=== PATIENT | female | born 1965 | race Caucasian/White ===

== ENCOUNTER → 2017-05-12 | Outpatient (CLI) | payer MEDICAID ==
[~2017-05-12] MED LIST: ATENOLOL25 MG PO; DICLOFENAC SOD PO; FLEXERIL10 MG PO; GLIPIZIDE ER 5MG5 MG PO; LEXAPRO 10 MG T10 MG PO; LISINOPRIL2.5 M1 PO; METFORMIN 500M500 MG PO; NORCO 325 MG-51 TAB PO; PERCOCET1 TAB PO
--- NOTE | 2017-05-12 11:07 | RADIOLOGY REPORT PS360 ---
[id number] VIEW COMP.-RT COMPARISON: CT exam right shoulder 05/07/2017 HISTORY: Follow-up fracture TECHNIQUE: AP and transthoracic lateral view FINDINGS: The essentially nondisplaced fracture of the humeral head and greater tuberosity is stable and unchanged in appearance from the CT exam. The small cortical right is seen anteriorly in the diametaphyseal zone of the humerus on the transthoracic view. There is a very faint somewhat oblique radiolucent line of the diametaphyseal zone seen on the AP view. IMPRESSION: Stable essentially nondisplaced fracture. The greater tuberosity and diametaphyseal zone.
== END ==
LOC: RAD 10:06
DX: S42.201A Unspecified fracture of upper end of right humerus, initial encounter for closed fracture (principal)

== ENCOUNTER → 2017-06-19 | Outpatient (CLI) | payer MEDICAID ==
--- NOTE | 2017-06-19 09:46 | RADIOLOGY REPORT PS360 ---
[id number]-UNI-3 VIEWS HISTORY: Follow-up fracture HEALING OF RT HUMERUS FX ORDERING PHYSICIAN: Rik Escobar MD PATIENT AGE: 52 years COMPARISON: 05/27/2017 FINDINGS: Healing right humeral neck fracture is present. Fracture line is less apparent and there is some developing callus formation. There is good alignment and no evidence of displacement. IMPRESSION: Healing right humeral neck fracture
== END ==
LOC: RAD 09:16
DX: S42.294D Other nondisplaced fracture of upper end of right humerus, subsequent encounter for fracture with routine healing (principal)

== ENCOUNTER → 2017-07-21 | Outpatient (CLI) | payer MEDICAID ==
--- NOTE | 2017-07-21 10:39 | RADIOLOGY REPORT PS360 ---
BONE DENSITOMETRY(HIP:LT SPINE HISTORY: CLOSED NONDISPLACED FRACTURE, PROX END RT HUMERUS, SEQUELA ORDERING PHYSICIAN: CHUY MCCLAIN PATIENT AGE: 52 years COMPARISON: None FINDINGS: The BMD measured at the left femoral neck is 0.857 g/cm squared with a T score of -1.3. This is considered Osteopenic according to the World Health Organization criteria. Fracture risk is Moderate. Treatment is advised. IMPRESSION: Osteopenia. Recommend follow-up exam July 2019
--- NOTE | 2017-07-22 08:57 | RADIOLOGY REPORT PS360 ---
CT CHEST W/ CONTRAST INDICATION: Follow-up lung nodules LUNG NODULES ORDERING PHYSICIAN: CHUY MCCLAIN PATIENT AGE: 52 years COMPARISON: 04/23/2016 TECHNIQUE: Axial images are obtained with 75 mL Isovue-370 IV . Sagittal and coronal reformatted images are reviewed as well. FINDINGS: There is heterogeneous density involving the lower pole of the thyroid gland on the right at approximately 1. 4 cm suggestive of a thyroid nodule and may be confirmed with ultrasound. The left lobe of thyroid gland is slightly enlarged inferiorly. No mediastinal or hilar mass. Normal heart size. No evidence of aortic aneurysm or central pulmonary embolus. There are centrilobular emphysematous changes with scattered cystic areas within the lungs. 4 mm nodule right upper lobe unchanged. Nodular thickening in the perivascular region in the right middle lobe at 4 mm unchanged. 4 mm nodule right middle lobe laterally unchanged scattered areas of pulmonary fibrosis. Faint 3 mm nodule right upper lobe laterally unchanged. 4 mm nodule left lower lobe unchanged. There is an 11 mm rounded nodule in the left lung base posteriorly unchanged. This does appear to contain some central calcification. A 4 mm nodule is present in the left lung base posteriorly unchanged. 5 mm nodule left lower lobe posteriorly and medially unchanged. No new nodules evident. No effusions or infiltrates. Upper abdominal images are unremarkable. There is a left adrenal nodule which is incompletely imaged measuring at least 15 mm similar to the previous exam. IMPRESSION: 1. Overall stable CT appearance of the chest. There are multiple pulmonary nodules as described above which are stable. The largest nodule is in the left lung base and does appear to contain some central calcification consistent with a granuloma. 2. Centrilobular emphysematous changes 3. Other nonacute findings as described above including a 14 mm right thyroid nodule which may be better evaluated with ultrasound.
== END ==
LOC: RAD 07-14 09:45
DX: R91.8 Other nonspecific abnormal finding of lung field (principal); Z78.0 Asymptomatic menopausal state; S42.294S Other nondisplaced fracture of upper end of right humerus, sequela; Z13.820 Encounter for screening for osteoporosis
CPT/HCPCS: Q9967

== ENCOUNTER 2017-09-09 17:40 | Emergency (ER) | payer MEDICAID ==
[~2017-09-09] VITALS: Ht 162.6 cm; Wt 77.1 kg
--- NOTE | 2017-09-09 18:06 | Urgent Treatment Center Report ---
History of Present Issue Date/Time Seen by Provider 09/09/17 1773 Visit Reason Pt arrived:Walked Presenting Problem:FELL, PAIN TO R SHOULDER, ELBOW AND WRIST Location if Accident: Onset of symptoms date/time:/ or onset unknown for:MEDICAL HX UNKNOWN Have you (or family members/close friends) recently traveled outside the [place]? N If Yes, where/when: Have you had exposure to infectious disease within the past month? TB? Other? Specify: Patient state that she fell going [place] [employer] and now having pain in right arm from her wrist to her shoulder State that she fell in May and had a fracture in her right shoulder State that she was stepping up on concrete wall last night and caught the tip of her shoe on the wall and lost her balance and fell State that she stuck her arms out to catch herself and feels like she "jammed" everything up ALLERGIES Coded Allergies: aspirin (EXTREME BRUISING 07/25/16) Home Medications Active Scripts OXYCODONE HCL/ACETAMINOPHEN (Percocet 5-325 MG Tablet) 1 TAB PO Q6HP PRN pain #10 TAB Prov: 05/07/17 Reported Medications HYDROCODONE/ACETAMINOPHEN ([place] 5-325 Tablet) 1-2 TAB PO Q4HP PRN PAIN Atenolol (Atenolol) 12.5 MG PO DAILY #30 METFORMIN HCL (Metformin 500MG) 500 MG PO BID #60 GLIPIZIDE (Glipizide ER) 5 MG PO DAILY #30 Lisinopril 2.5 MG PO DAILY #30 Escitalopram Oxalate (Lexapro 10MG) 10 MG PO NIGHTLY History Medical History General CAD? No Angina: No [place]: No Hypertension? Yes Hyperlipidemia? No CHF? No DVT? No PE? No COPD? No Asthma? No Anemia? No GERD? No Gastric ulcers? No GI Bleed? No Hernia? No Thyroid Problems? No Hypothyroidism? No CVA? No Seizures? No Diabetes? Yes Insulin Dependent: No Insulin Pump: No Home FSBS? Yes Renal Insuffiency? No UTI? Yes Stones? No BPH? No GB Disease: No Nephritic Syndrome? No Asplenia? No Hepatitis? No Sickle Cell Disease? No Arthritis? No Migraines? No Cataracts? No Glaucoma? No MRSA? No HIV? No TB? No Anxiety? No Depression? No Cancer? Yes Site: LEG More? No Immunization HX DT/Tetanus < 1 Year Ago Flu Refused Pneumonia Never Had Surgical Hx Previous Surgery?Y X3 MOLE REMOVAL-LEG LT I&D LT GROIN MOLE REMOVAL-LEG Family History Family HX Diabetes No CAD Yes Hypertension No Hyperlipidemia No Cancer Yes TB No Social History Smoking Hx Smoker: Never Smoker Tobacco: No Packs/day < 1 Pack Alcohol Alcohol: No Review of Systems All Other Systems Reviewed and Negative Physical Exam Vital Signs Vital Signs Date Time Temp Pulse Resp B/P Pulse O2 O2 Flow FiO2 Ox Delivery Rate 09/09 1750 98.9 68 20 150/94 100 General Appearance normal appearance, WD/WN, no apparent distress Respiratory Status Yes: trachea midline, chest symmetrical, non tender chest. No: respiratory distress. Cardiovascular normal exam, regular rate/rhythm, no peripheral edema Extremities Pain in right arm from shoulder to wrist after falling at home and she placed her arms out in front of her to brace her fall and now having pain, had recent fracture in May of the right shoulder muscle tightness noted right shoulder area Neurologic alert, normal exam, oriented x 3 Medical Decision Making LABS/Meds/Orders Pt receiving controlled substance in ED? No Results/Orders Orders Procedure Date/time Status [id number]-UNI-3 VIEWS 09/09 1801 Active FOREARM-RT 09/09 1801 Active ELBOW-RT-3 VIEWS 09/09 1801 Active XRAY/CT/US XRAY/CT/US XRAY elbow, forearm, shoulder XR interpretation by reviewed by me Xray Results no fracture seen Comment Discussed with Dr Burnette and agree Departure Departure Time of Disposition 1837 Disposition DC Home or Self Care(routine) Clinical Impression Primary Impression: Shoulder pain Qualifiers: Chronicity: unspecified Laterality: right Qualified Code: M25.511 - Pain in right shoulder Secondary Impressions: Muscle pain Condition STABLE Referrals AASHISH VERA, DILCIA (Family): [facility] Patient Instructions DI for Shoulder Pain, How To Perform RICE (Rest, Ice, Compress, Elevate) Additional Instructions *RICE, Rest the extremity, Ice 15-20 minutes 3-4 times daily, Compress- wear the carlos wrap as discussed as much as possible to help reduce swelling and pain, Elevate the extremity when at rest *Carlos wrap is for support and help control swelling, use it except in the shower. Be sure that is not to tight but not to loose either *Elevate when resting *Ibuprofen 600-800mg every 6-8 hours as needed for pain an inflammation. If need something more can take Tylenol in between doses of Ibuprofen to help Immediately follow up for new or worsening of symptoms, or no noticeable improvement over the next 3-5 days Discharge Counseling Counseled pt/family regarding diagnosis, test results, medications/RX, home care, follow up needs Prescriptions Current Visit Scripts Cyclobenzaprine Hcl (Flexeril) 10 MG PO TID #15 TAB at 1038
--- NOTE | 2017-09-09 18:06 | Urgent Treatment Center Report ---
History of Present Issue Date/Time Seen by Provider 09/09/17 3648 Visit Reason Pt arrived:Walked Presenting Problem:FELL, PAIN TO R SHOULDER, ELBOW AND WRIST Location if Accident: Onset of symptoms date/time:/ or onset unknown for:MEDICAL HX UNKNOWN Have you (or family members/close friends) recently traveled outside the [place]? N If Yes, where/when: Have you had exposure to infectious disease within the past month? TB? Other? Specify: Patient state that she fell going to the [employer] and now having pain in right arm from her wrist to her shoulder State that she fell in May and had a fracture in her right shoulder State that she was stepping up on concrete wall last night and caught the tip of her shoe on the wall and lost her balance and fell State that she stuck her arms out to catch herself and feels like she "jammed" everything up ALLERGIES Coded Allergies: aspirin (EXTREME BRUISING 07/25/16) Home Medications Active Scripts OXYCODONE HCL/ACETAMINOPHEN (Percocet 5-325 MG Tablet) 1 TAB PO Q6HP PRN pain #10 TAB Prov: 05/07/17 Reported Medications HYDROCODONE/ACETAMINOPHEN ([place] 5-325 Tablet) 1-2 TAB PO Q4HP PRN PAIN Atenolol (Atenolol) 12.5 MG PO DAILY #30 METFORMIN HCL (Metformin 500MG) 500 MG PO BID #60 GLIPIZIDE (Glipizide ER) 5 MG PO DAILY #30 Lisinopril 2.5 MG PO DAILY #30 Escitalopram Oxalate (Lexapro 10MG) 10 MG PO NIGHTLY History Medical History General CAD? No Angina: No [place]: No Hypertension? Yes Hyperlipidemia? No CHF? No DVT? No PE? No COPD? No Asthma? No Anemia? No GERD? No Gastric ulcers? No GI Bleed? No Hernia? No Thyroid Problems? No Hypothyroidism? No CVA? No Seizures? No Diabetes? Yes Insulin Dependent: No Insulin Pump: No Home FSBS? Yes Renal Insuffiency? No UTI? Yes Stones? No BPH? No GB Disease: No Nephritic Syndrome? No Asplenia? No Hepatitis? No Sickle Cell Disease? No Arthritis? No Migraines? No Cataracts? No Glaucoma? No MRSA? No HIV? No TB? No Anxiety? No Depression? No Cancer? Yes Site: LEG More? No Immunization HX DT/Tetanus < 1 Year Ago Flu Refused Pneumonia Never Had Surgical Hx Previous Surgery?Y X3 MOLE REMOVAL-LEG LT I&D LT GROIN MOLE REMOVAL-LEG Family History Family HX Diabetes No CAD Yes Hypertension No Hyperlipidemia No Cancer Yes TB No Social History Smoking Hx Smoker: Never Smoker Tobacco: No Packs/day < 1 Pack Alcohol Alcohol: No Review of Systems All Other Systems Reviewed and Negative Physical Exam Vital Signs Vital Signs Date Time Temp Pulse Resp B/P Pulse O2 O2 Flow FiO2 Ox Delivery Rate 09/09 1750 98.9 68 20 150/94 100 General Appearance normal appearance, WD/WN, no apparent distress Respiratory Status Yes: trachea midline, chest symmetrical, non tender chest. No: respiratory distress. Cardiovascular normal exam, regular rate/rhythm, no peripheral edema Extremities Pain in right arm from shoulder to wrist after falling at home and she placed her arms out in front of her to brace her fall and now having pain, had recent fracture in May of the right shoulder muscle tightness noted right shoulder area Neurologic alert, normal exam, oriented x 3 Medical Decision Making LABS/Meds/Orders Pt receiving controlled substance in ED? No Results/Orders Orders Procedure Date/time Status [id number]-UNI-3 VIEWS 09/09 1801 Active FOREARM-RT 09/09 1801 Active ELBOW-RT-3 VIEWS 09/09 1801 Active XRAY/CT/US XRAY/CT/US XRAY elbow, forearm, shoulder XR interpretation by reviewed by me Xray Results no fracture seen Comment Discussed with Dr Burnette and agree Departure Departure Time of Disposition 1837 Disposition DC Home or Self Care(routine) Clinical Impression Primary Impression: Shoulder pain Qualifiers: Chronicity: unspecified Laterality: right Qualified Code: M25.511 - Pain in right shoulder Secondary Impressions: Muscle pain Condition STABLE Referrals AASHISH VERA, DILCIA (Family): [facility] Patient Instructions DI for Shoulder Pain, How To Perform RICE (Rest, Ice, Compress, Elevate) Additional Instructions *RICE, Rest the extremity, Ice 15-20 minutes 3-4 times daily, Compress- wear the carlos wrap as discussed as much as possible to help reduce swelling and pain, Elevate the extremity when at rest *Carlos wrap is for support and help control swelling, use it except in the shower. Be sure that is not to tight but not to loose either *Elevate when resting *Ibuprofen 600-800mg every 6-8 hours as needed for pain an inflammation. If need something more can take Tylenol in between doses of Ibuprofen to help Immediately follow up for new or worsening of symptoms, or no noticeable improvement over the next 3-5 days Discharge Counseling Counseled pt/family regarding diagnosis, test results, medications/RX, home care, follow up needs Prescriptions Current Visit Scripts Cyclobenzaprine Hcl (Flexeril) 10 MG PO TID #15 TAB at 4129
[2017-09-09] MEDS ORDERED: FLEXERIL10 MG PO (18:40)
[2017-09-09 18:47] VITALS: BP 145/90
--- NOTE | 2017-09-09 20:00 | RADIOLOGY REPORT PS360 ---
ELBOW-RT-3 VIEWS HISTORY: Elbow pain following injury arm pain after fall ORDERING PHYSICIAN: CHUY SHARMA APRN PATIENT AGE: 52 years COMPARISON: None FINDINGS: BONY STRUCTURES: No fracture or dislocation. No lytic or blastic change. Normal mineralization. SOFT TISSUES: Unremarkable. No radio opaque foreign bodies. No displaced fat pad. JOINT SPACE: Well-preserved. No significant arthritic changes evident. IMPRESSION: Negative elbow.
--- NOTE | 2017-09-09 20:01 | RADIOLOGY REPORT PS360 ---
[id number]-UNI-3 VIEWS HISTORY: Shoulder pain following injury arm pain after fall ORDERING PHYSICIAN: CHUY SHARMA APRN PATIENT AGE: 52 years COMPARISON: None FINDINGS: No fracture or dislocation. No lytic or blastic change. There is normal mineralization. The joint spaces are well-preserved. No significant degenerative/arthritic changes. No erosive changes evident. IMPRESSION: Negative, no acute finding
--- NOTE | 2017-09-09 20:01 | RADIOLOGY REPORT PS360 ---
FOREARM-RT HISTORY: Forearm pain following injury arm pain after fall ORDERING PHYSICIAN: CHUY SHARMA APRN PATIENT AGE: 52 years COMPARISON: None FINDINGS: No obvious fracture, dislocation, lytic change or blastic change. Normal mineralization. Unremarkable soft tissues IMPRESSION: Negative forearm
== END 2017-09-09 18:49 | disposition home or self-care (01) ==
LOC: UTC 17:40
DX: M25.511 Pain in right shoulder (principal); M25.521 Pain in right elbow; I10 Essential (primary) hypertension; E11.9 Type 2 diabetes mellitus without complications; W01.0XXA Fall on same level from slipping, tripping and stumbling without subsequent striking against object, initial encounter; Y92.017 Garden or yard in single-family (private) house as the place of occurrence of the external cause

== ENCOUNTER 2017-10-06 13:49 | Emergency (ER) | payer MEDICAID ==
[~2017-10-06] VITALS: Ht 162.6 cm; Wt 77.1 kg
--- OUTSIDE RECORDS SUMMARY | 2017-10-06 13:55 | External Medical Summary Rpt | CCD ---
Author Author [employer] Organization [employer] Address Unknown Phone Unavailable Purpose Continuity of Care Document - through 2016
--- OUTSIDE RECORDS SUMMARY | 2017-10-06 13:55 | External Medical Summary Rpt | CCD ---
Demographics Preferred Language Kosovan Marital Status Unknown Jehovah'S Witness Affiliation Unknown Race Unknown Ethnic Group Unknown Author Author , SALLY ZAVALA Address Unknown Phone Immunization No patient found.
--- OUTSIDE RECORDS SUMMARY | 2017-10-06 13:55 | External Medical Summary Rpt | CCD ---
Author Author , NORMA Organization NORMA Address Unknown Phone [email or web address] Purpose Continuity of Care Document - 03-19-2017 through 2016 Problems Code Diagnosis DOS Provider Status S16.1XXA STRAIN OF MUSCLE, FASCIA AND TENDON AT NECK LEVEL, INIT S20.20XA CONTUSION OF THORAX, UNSPECIFIED , INITIAL ENCOUNTER S42.91XA FRACTURE OF RIGHT SHOULDER GIRDLE, PART UNSP, INIT S43.402A UNSPECIFIED SPRAIN OF LEFT SHOULDER JOINT, INITIAL ENCOUNTER T14.8 OTHER INJURY OF UNSPECIFIED BODY REGION T14.8XXA OTHER INJURY OF UNSPECIFIED BODY REGION, INITIAL ENCOUNTER Results Labs Lab Lab Date Result Refere Interp Status Commen Order Detail nces retati t Range on Drugs identified in Unspecified specimen by Screen method (06-01-2017 14:18) Drugs COLLECT complet identif 017 ION ed ied in 14:18 ONLY Unspeci fied specime n by Screen method Hemoglobin A1c in Blood (03-19-2017 09:06) Hemoglo 8.3 % 0.0% High complet bin A1c 017 - ed in 09:06 7.0% Blood
--- OUTSIDE RECORDS SUMMARY | 2017-10-06 13:55 | External Medical Summary Rpt | CCD ---
Demographics Preferred Language Spanish Marital Status Unknown Episcopal Affiliation Unknown Race Unknown Ethnic Group Unknown Author Author , SALLY ZAVALA Address Unknown Phone Immunization No patient found.
--- OUTSIDE RECORDS SUMMARY | 2017-10-06 13:55 | External Medical Summary Rpt | CCD ---
Author Author , NORMA Organization NORMA Address Unknown Phone [email or web address] Purpose Continuity of Care Document - 03-19-2017 [...]
--- OUTSIDE RECORDS SUMMARY | 2017-10-06 13:56 | External Medical Summary Rpt ---
Author Author SALLY Vazquez, [employer] Organization [employer] Address Unknown Phone Unavailable Results Basic metabolic panel in Blood Observa Value Referen Units Interpr Notes Date tion ce etation Range Urea 7 - 18 mg/dL Normal No Sep 15 nitrogen informati 2017 3:06 [Mass/vol on in PM ume] in source Serum or data Plasma Calcium 8.5 - mg/dL Normal No Sep 15 [Mass/vol 10.1 informati 2017 3:06 ume] in on in PM Serum or source Plasma data Chloride 98 - 107 mmoL/L Normal No Sep 15 [Moles/vo informati 2017 3:06 lume] in on in PM Serum or source Plasma data Carbon 21.0 - mmoL/L Normal No Sep 15 dioxide, 32.0 informati 2017 3:06 total on in PM [Moles/vo source lume] in data Serum or Plasma Creatinin 0.55 - mg/dL Normal No Sep 15 e 1.02 informati 2017 3:06 [Mass/vol on in PM ume] in source Serum or data Plasma Estimated 59- ML/MIN No REFERENCE Sep 15 informati RANGE: 2017 3:06 glomerula on in >60 PM r source ML/MIN/1. filtratio data 73 SQUARE n rate METERSIf (GF this patient is -A merican, then multiply theresult by 1.210. Glucose 74 - 106 mg/dL High No Sep 15 [Mass/vol informati 2017 3:06 ume] in on in PM Serum or source Plasma data Potassium 3.5 - 5.1 mmoL/L Normal No Sep 15 informati 2017 3:06 [Moles/vo on in PM lume] in source Serum or data Plasma Sodium 136 - 145 mmoL/L Normal No Sep 15 [Moles/vo informati 2017 3:06 lume] in on in PM Serum or source Plasma data Drugs identified in Unspecified specimen by Screen method Observa Value Referen Units Interpr Notes Date tion ce etation Range Drugs COLLECT No No No SPECIME Jun 01 identif ION informa informa informa N SENT 2017 ied in ONLY tion in tion in tion in TO 2:18 PM Unspeci source source source ANOTHER fied data data data LAB specime FOR n by ANALYSI Screen S.RESUL method TS NOT RETAINE D AT [facility] CBC W Auto Differential panel in Blood Observa Value Referen Units Interpr Notes Date tion ce etation Range Basophils 0 - 0.2 K/MM3 Normal No March 19 informati 2016 9:06 [#/volume on in AM ] in source Blood by data Automated count Basophils 0.1 - 2.0 % Normal No March 19 / informati 2016 9:06 leukocyte on in AM s in source Blood by data Automated count Eosinophi 0.0 - 0.4 K/mm3 Normal No March 19 ls informati 2016 9:06 [#/volume on in AM ] in source Blood by data Automated count Eosinophi 0.1 - % Normal No March 19 ls/100 12.0 informati 2016 9:06 leukocyte on in AM s in source Blood by data Automated count Granulocy 1.8 - 7.8 K/mm3 Normal No March 19 kathryn informati 2016 9:06 [#/volume on in AM ] in source Blood by data Automated count Granulocy 37.0 - % Normal No March 19 kathryn/100 80.0 informati 2016 9:06 leukocyte on in AM s in source Blood by data Automated count Hematocri 37.0 - % Normal No March 19 t [Volume 47.0 informati 2016 9:06 on in AM Fraction] source of Blood data Hemoglobi 12.2 - g/dL Normal No March 19 n 16.2 informati 2016 9:06 [Mass/vol on in AM ume] in source Blood data Lymphocyt 0.7 - 4.5 K/mm3 Normal No March 19 es informati 2016 9:06 [#/volume on in AM ] in source Unspecifi data ed specimen by Automated count Lymphocyt 10 - 50.0 % Normal No March 19 es informati 2016 9:06 [#/volume on in AM ] in source Unspecifi data ed specimen by Automated count Erythrocy 27 - 31.2 pg High No March 19 te mean informati 2016 9:06 corpuscul on in AM ar source hemoglobi data n [Entitic mass] Erythrocy 31.8 - g/dl Normal No March 19 te mean 35.4 informati 2016 9:06 corpuscul on in AM ar source hemoglobi data n concentra tion [Mass/vol ume] by Automated count Erythrocy 82.2 - fl High No March 19 te mean 97.8 informati 2016 9:06 corpuscul on in AM ar volume source [Entitic data volume] by Automated count Monocytes 0.1 - 1.0 K/mm3 Normal No March 19 informati 2016 9:06 [#/volume on in AM ] in source Blood by data Automated count Monocytes 1.7 - 9.3 % Normal No March 19 / informati 2016 9:06 leukocyte on in AM s in source Blood by data Automated count Platelet 7.4 - fl Normal No March 19 mean 10.4 informati 2016 9:06 volume on in AM [Entitic source volume] data in Blood by Automated count Platelets 142 - 424 K/mm3 Normal No March 19 inform2016 9:06 [#/volume on in AM ] in source Blood data Erythrocy 4.2 - 5.4 M/mm3 Normal No March 19 kathryn informati 2016 9:06 [#/volume on in AM ] in source Amniotic data fluid Erythrocy 11.5 - % Normal No March 19 te 17.5 informati 2016 9:06 distribut on in AM ion width source [Entitic data volume] by Automated count Leukocyte 4.8 - K/MM3 Normal No March 19 s 10.8 informati 2016 9:06 [#/volume on in AM ] in source Blood data Erythrocyte sedimentation rate by Westergren method Observa Value Referen Units Interpr Notes Date tion ce etation Range Erythrocy 0 - 30 mm/hr Normal No March 19 te informati 2016 9:06 sedimenta on in AM tion rate source by data Westergre n method Hemoglobin A1c in Blood Observa Value Referen Units Interpr Notes Date tion ce etation Range Hemoglo 8.3 0.0 - % High < 6% March 19 bin A1c 7.0 NON-SHARMAINE 2017 in BETIC 9:06 AM Blood LEVEL< 7% CONTROL LED DIABETI C LEVEL> 8% POORLY CONTROL LED DIABETI C LEVEL
--- OUTSIDE RECORDS SUMMARY | 2017-10-06 13:56 | External Medical Summary Rpt ---
[...] S.RESUL method TS NOT RETAINE D AT [facility] CBC W Auto Differential panel in [...]
[2017-10-06] MEDS ORDERED: AMOXICILLIN875 MG PO (15:51)
[2017-10-06 15:52] VITALS: BP 110/80
--- NOTE | 2017-10-06 15:52 | [facility]gent Treatment Center Report ---
History of Present Issue Date/Time Seen by Provider 10/06/17 1543 Visit Reason Pt arrived:Walked Presenting Problem:FEELS LIKE I HAVE TONSILITIS, EARS ARE STUFFY X 2 DAYS Location if Accident: Onset of symptoms date/time:/ or onset unknown for:MEDICAL HX UNKNOWN Have you (or family members/close friends) recently traveled outside the [place]? N If Yes, where/when: Have you had exposure to infectious disease within the past month? TB? Other? Specify: c/o "I think I am starting to get tonsillitis again. I get it every year and it starts just like this.". Right sided throat pain. Right tonsil larger then left and thought she saw white on it. No fever, aches, chills. Marco ear pressure w/ popping in both if swallows. Minimal clear rhinorrhea. Warm salt water gargles help. No known sick contacts. Source patient Exam Limitations no limitations ALLERGIES Coded Allergies: aspirin (EXTREME BRUISING 07/25/16) Home Medications Active Scripts Cyclobenzaprine Hcl (Flexeril) 10 MG PO TID #15 TAB Prov: 09/09/17 OXYCODONE HCL/ACETAMINOPHEN (Percocet 5-325 MG Tablet) 1 TAB PO Q6HP PRN pain #10 TAB Prov: 05/07/17 Reported Medications HYDROCODONE/ACETAMINOPHEN (Shepherd 5-325 Tablet) 1-2 TAB PO Q4HP PRN PAIN Atenolol (Atenolol) 12.5 MG PO DAILY #30 METFORMIN HCL (Metformin 500MG) 500 MG PO BID #60 GLIPIZIDE (Glipizide ER) 5 MG PO DAILY #30 Lisinopril 2.5 MG PO DAILY #30 Escitalopram Oxalate (Lexapro 10MG) 10 MG PO NIGHTLY History Medical History General CAD? No Angina: No PR: No Hypertension? Yes Hyperlipidemia? No CHF? No DVT? No PE? No COPD? No Asthma? No Anemia? No GERD? No Gastric ulcers? No GI Bleed? No Hernia? No Thyroid Problems? No Hypothyroidism? No CVA? No Seizures? No Diabetes? Yes Insulin Dependent: No Insulin Pump: No Home FSBS? Yes Renal Insuffiency? No UTI? Yes Stones? No BPH? No GB Disease: No Nephritic Syndrome? No Asplenia? No Hepatitis? No Sickle Cell Disease? No Arthritis? No Migraines? No Cataracts? No Glaucoma? No MRSA? No HIV? No TB? No Anxiety? No Depression? No Cancer? Yes Site: LEG More? No Immunization HX DT/Tetanus < 1 Year Ago Flu Refused Pneumonia Never Had Surgical Hx Previous Surgery?Y X3 MOLE REMOVAL-LEG LT I&D LT GROIN MOLE REMOVAL-LEG Family History Family HX Diabetes No CAD Yes Hypertension No Hyperlipidemia No Cancer Yes TB No Social History Smoking Hx Smoker: Current Some Day Smoker Tobacco: Yes Type Cigarettes Packs/day < 1 Pack Alcohol Alcohol: No Review of Systems All Other Systems Reviewed and Negative Constitutional see HPI, denies malaise Eyes denies drainage ENT see HPI. denies: ear discharge, nose congestion, throat swelling. Respiratory denies cough Gastrointestinal denies no symptoms reported Musculoskeletal denies joint pain Skin denies rash Psychiatric/Neurological denies headache Physical Exam Vital Signs Vital Signs Date Time Temp Pulse Resp B/P Pulse O2 O2 Flow FiO2 Ox Delivery Rate 10/06 1446 97.6 71 18 112/87 98 General Appearance normal appearance, no apparent distress Ear, Nose, Throat marco eacs, tms and nares unremarkable; right tonsil 1+, no exudate or erythema Neck non-tender, supple Respiratory Status No: respiratory distress, productive cough, non productive cough. Lung Sounds anterior: lungs clear. posterior: lungs clear. bilateral: lungs clear. Cardiovascular regular rate/rhythm, no peripheral edema, no murmur Neurologic alert, oriented x 3 Mental status normal mood/affect Skin normal color, warm/dry Lymphatic no adenopathy Medical Decision Making LABS/Meds/Orders Pt receiving controlled substance in ED? No Results/Orders Laboratory Tests 10/06/17 1452: Group A Strep Screen NOT DETECTED Orders Procedure Date/time Status [facility] STREP SCREEN 10/06 1452 Complete Departure Departure Time of Disposition 1547 Disposition DC Home or Self Care(routine) Clinical Impression Primary Impression: Acute pharyngitis Qualifiers: Pharyngitis/tonsillitis etiology: unspecified etiology Qualified Code: J02.9 - Acute pharyngitis, unspecified Condition STABLE Referrals DILCIA DURHAM (Family) IMMEDIATELY for new or worsening symptoms OR no noticeable improvement over the next 48-72 hours. 911 for difficulty breathing or swallowing. Patient Instructions DI for Pharyngitis/Tonsillopharyngitis -- Adult Additional Instructions * No sign of bacterial infection. * Your symptoms are likely viral. An antibiotic will not make you feel better. Antibiotics are for bacterial infections. Viruses have to run their course with treating the symptoms. I understand you would prefer to have an antibiotic because you know your body and I will give you one only for that reason. Remember that as we discussed, antibiotics do come with side effects and risk including allergic reactions and resistance. Resistance to antibiotics can cause serious complications in the future if there is no antibiotic to treat an infection you have. Carefully consider this before starting antibiotics for symptoms that are likely viral. Pt would still like antibiotics. * Monitor Temp. FU if fever develops * Encourage fluids, water, gatorade, powerade, pedialyte if /toddler/child * warm salt water gargles * warm fluids * sore throat lozenges * * Your throat swab was sent for culture. Those results are typically sent to your primary care. Be sure to follow up in 2-3 days if no improvement so they can review those results and treat if necessary. If you don't have primary care, I recommend you get one but in the mean time, you will have to return to a walk in clinic. Discharge Counseling Counseled pt/family regarding diagnosis, test results, medications/RX, home care, follow up needs Prescriptions Current Visit Scripts AMOXICILLIN (Amoxicillin 875MG Tab) 875 MG PO BID #20 TAB at 4666
== END 2017-10-06 15:55 | disposition home or self-care (01) ==
LOC: UTC 13:49
DX: J02.9 Acute pharyngitis, unspecified (principal); I10 Essential (primary) hypertension; E11.9 Type 2 diabetes mellitus without complications; F17.210 Nicotine dependence, cigarettes, uncomplicated